=== PATIENT | female | born 1995 | race Caucasian/White ===

== ENCOUNTER 2017-07-07 22:23 | Emergency (ER) | payer OTHER | END 2017-07-08 00:20 | disposition left against medical advice (07) | LOC: ED 23:04 | DX: R07.9 Chest pain, unspecified (principal); Z53.21 Procedure and treatment not carried out due to patient leaving prior to being seen by health care provider ==

== ENCOUNTER 2017-07-08 14:25 | Emergency (ER) | payer SELFPAY ==
[2017-07-08 14:49] VITALS: BP 106/64
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
== END 2017-07-08 15:52 | disposition home or self-care (01) ==
LOC: UCEAST 14:25
DX: S29.9XXA Unspecified injury of thorax, initial encounter (principal); V43.52XA Car driver injured in collision with other type car in traffic accident, initial encounter; Y93.9 Activity, unspecified; Y92.9 Unspecified place or not applicable; Y99.9 Unspecified external cause status; M54.2 Cervicalgia
CPT/HCPCS: 71020; 72050; 99211; G0463